=== PATIENT | male | born 1955 | race Caucasian/White ===

== ENCOUNTER 2021-10-19 10:00 | Outpatient (CLI) | payer MEDICARE, OTHER | END 2021-10-19 10:01 | disposition home or self-care (01) | LOC: LABBT 10:00 | PROVIDERS: ATTEND Anesthesiology Pain Medicine | DX: Z20.822 Contact with and (suspected) exposure to COVID-19 (principal) | CPT/HCPCS: 87811 ==

== ENCOUNTER 2021-10-23 11:47 | Day surgery (SDC) | payer MEDICARE, OTHER ==
[2021-10-22 09:13] VITALS: BMI 25.8
[2021-10-23] MEDS ORDERED: PROPOFOL 200 MG/20 ML VIAL ONE (13:30)
[2021-10-23] MEDS ORDERED: Lidocaine 1% PF 5 ML VIAL ONE (13:30)
== END 2021-10-23 15:35 | disposition home or self-care (01) ==
LOC: SDC/OP 11:47
PROVIDERS: ATTEND Anesthesiology Pain Medicine
DX: M51.16 Intervertebral disc disorders with radiculopathy, lumbar region (principal); M48.062 Spinal stenosis, lumbar region with neurogenic claudication; M48.07 Spinal stenosis, lumbosacral region; I10 Essential (primary) hypertension; J45.909 Unspecified asthma, uncomplicated; E78.00 Pure hypercholesterolemia, unspecified; Z79.899 Other long term (current) drug therapy; Z88.8 Allergy status to other drugs, medicaments and biological substances; Z87.891 Personal history of nicotine dependence; Z86.73 Personal history of transient ischemic attack (TIA), and cerebral infarction without residual deficits
CPT/HCPCS: 72148; 93005; 93010; J2704

== ENCOUNTER 2022-11-01 12:50 | Outpatient (CLI) | payer MEDICARE, OTHER | END 2022-11-01 12:51 | disposition home or self-care (01) | LOC: RAD 12:50 | PROVIDERS: ATTEND Anesthesiology Pain Medicine | DX: M46.1 Sacroiliitis, not elsewhere classified (principal); M16.0 Bilateral primary osteoarthritis of hip; Z98.890 Other specified postprocedural states | CPT/HCPCS: 72170 ==